=== PATIENT | female | born 1995 | race Caucasian/White ===

== ENCOUNTER 2017-01-04 15:16 | Emergency (ER) | payer OTHER ==
[2017-01-04 15:29] VITALS: BP 101/59
--- NOTE | 2017-01-04 15:57 | UC ---
Throat Pain/Nasal Jose HPI - HPI Summary HPI Summary: pt presents with c/o nasal congestion, cough, fever and flu like symptoms X 3 days. - History of Current Complaint Chief Complaint: UCRespiratory Stated Complaint: COUGH CONGESTION NAUSEA Time Seen by Provider: 01/04/17 15:21 Hx Obtained From: Patient Hx Last Menstrual Period: week of 12/18/2016 ?: No - Onset/Duration: Sudden Onset, Lasting Days Severity: Mild Cough: Nonproductive Associated Signs & Symptoms: Positive: Other - nasal congestion - Epiglottits Risk Factors Epiglottis Risk Factors: Negative - Allergies/Home Medications Allergies/Adverse Reactions: Allergies Allergy/AdvReac Type Severity Reaction Status Date / Time Amoxicillin Allergy Severe Hives Verified 07/20/12 13:41 Erythromycin Allergy Severe Hives Verified 07/20/12 13:41 cillins Allergy Hives Uncoded 01/04/17 15:29 PMH/Surg Hx/FS Hx/Imm Hx Previously Healthy: Yes - Surgical History Surgical History: None - Family History Known Family History: Positive: Cardiac Disease - Social History Occupation: Employed Full-time Lives: With Family Alcohol Use: None Substance Use Type: None Smoking Status (MU): Never Smoked Tobacco Have You Smoked in the Last Year: No - Immunization History Vaccination Up to Date: Yes Review of Systems Constitutional: Fatigue Skin: Negative Eyes: Negative ENT: Other - nasal congestion Respiratory: Cough Cardiovascular: Negative Gastrointestinal: Negative Genitourinary: Negative Motor: Negative Neurovascular: Negative Musculoskeletal: Negative Neurological: Negative Psychological: Negative Is Patient Immunocompromised?: No All Other Systems Reviewed And Are Negative: Yes Physical Exam Triage Information Reviewed: Yes Appearance: Ill-Appearing Vital Signs: Initial Vital Signs Temp 98.1 F 01/04/17 15:24 Pulse 63 01/04/17 15:24 Resp 18 01/04/17 15:24 BP 101/59 01/04/17 15:24 Pulse Ox 100 01/04/17 15:24 Vital Signs Reviewed: Yes Eye Exam: Normal ENT Exam: Other ENT: Positive: Nasal congestion Dental Exam: Normal Neck exam: Normal Respiratory Exam: Normal Cardiovascular Exam: Normal Musculoskeletal Exam: Normal Neurological Exam: Normal Psychological Exam: Normal Skin Exam: Normal Throat Pain/Nasal Course/Dx - Differential Dx/Diagnosis Differential Diagnosis/HQI/PQRI: Influenza, URI, Other - allergic rhinitis Provider Diagnoses: URI. allergies Discharge - Discharge Plan Condition: Stable Disposition: HOME Prescriptions: Cetirizine* [ZyrTEC 10 MG TAB*] 10 mg PO DAILY #10 tab Chlorpheniramine-Phenylephrine [Coricidin D Cold/Flu/Sinu] 1 tab PO DAILY #10 tab Patient Education Materials: Allergic Rhinitis (ED) Forms: *Work Release Referrals: MC Leung [Primary Care Provider] - If Needed
== END 2017-01-04 16:05 | disposition home or self-care (01) ==
LOC: UCCORT 15:16
DX: J06.9 Acute upper respiratory infection, unspecified (principal); Z88.3 Allergy status to other anti-infective agents
CPT/HCPCS: 99202; G0463